=== PATIENT | male | born 1990 | race Caucasian/White ===

== ENCOUNTER → 2018-11-29 10:34 | Day surgery (SDC) | payer OTHER ==
[~2018-11-29 10:34] MED LIST: Buffered Lidocaine 1% SYRIN* 1 ML/SYRINGE INTRADERM ONE; Ketorolac INJ* 30 MG/ML 1 ML VIAL ONE; Lactated Ringers 1000 ML Bag* 1,000 ML IV SCH; Lidocaine 2% PF * 5 ML VIAL ONE; Midazolam* 1 MG/ML 2 ML VIAL (2 MG) ONE; Naloxone* 0.4 MG/ML 1 ML VIAL IV PRN; Ondansetron INJ* 2 MG/ML VIAL ONE; Propofol* 10 MG/ML 20 ML BTL ONE; Sodium Citrate/Citric Acid* 15 ML UDC ONE; Sodium Citrate/Citric Acid* 15 ML UDC PO ONE; Succinylcholine* 20 MG/ML 10 ML VIAL ONE; fentaNYL* 50 MCG/ML 2 ML VIAL (100 MCG VIAL) IV PRN; fentaNYL* 50 MCG/ML 2 ML VIAL (100 MCG VIAL) ONE
[2018-11-29 13:44] VITALS: BP 136/92
--- NOTE | 2018-11-29 13:58 | OP ---
OPERATIVE REPORT: DATE OF OPERATION: 11/29/18 DATE OF : 89 SURGEON: Ron Lee MD FILTER PRESS SUPERVISOR: None. ANESTHESIA: General. PRE-OP DIAGNOSES: 1. Chronic tonsillitis. 2. Chronic adenoiditis. POST-OP DIAGNOSES: 1. Chronic tonsillitis. 2. Chronic adenoiditis. OPERATIVE PROCEDURE: Tonsillectomy and adenoidectomy. ESTIMATED BLOOD LOSS: Negligible. SPECIMENS: Right and left tonsils to Pathology, adenoid tissues vaporized. DESCRIPTION OF PROCEDURE: This is a 28-year-old male with chronic tonsillitis, chronic adenoiditis, who presents for an elective tonsillectomy and adenoidectomy. He was brought to the operating room, g eneral anesthesia was induced and an oral endotracheal tube was placed. The patient was draped. Davi e-out was performed and the table was turned. A McIvor mouth gag was used to facilitate exposure of the oropharynx and was suspended from the Quick stand. The right tonsils addressed first. It was gra sped with a straight Allis forceps, retracted medially and dissected free of its fossa with a coblati on device at a setting of 7 and 3 with minimal bleeding. There were numerous tonsil stones within th e right tonsil. Once the right tonsil was removed, attention was turned to the left tonsil. It was removed in identical fashion, again utilizing the straight Allis forceps and coblation device with mi nimal bleeding. Once the tonsils were removed, the device settings were turned up to 9 and 5. The s uperior and inferior pole regions were then prophylactically cauterized. A red rubber catheter was t hen placed through the right nasal cavity, brought out through the mouth and used to facilitate expos ure of the adenoid bed. There was relatively little tissue here and so the Coblator was just used to vaporize and cauterize the remaining tissue. There was minimal bleeding. The mouth gag was then le t down for a period of minute, it was then opened again, there was no evidence of active bleeding. T he patient was then turned over to the anesthesiologist. He was extubated and delivered to the PACU. [id number]/[facility] #: [id number]
== END | disposition home or self-care (01) ==
LOC: OR 10:34
PROVIDERS: ATTEND Otolaryngology
DX: J35.03 Chronic tonsillitis and adenoiditis (principal)
CPT/HCPCS: 88304; A9270-GY; J0330; J1885; J2250; J2405; J2704; J3010